=== PATIENT | female | born 1965 | race Caucasian/White ===

== ENCOUNTER → 2018-11-24 07:19 | Outpatient (CLI) | payer OTHER, SELFPAY ==
--- NOTE | 2018-11-24 12:02 | NEURO ---
NCS and/or EMG Patient Report Ordering Doctor: Claus Crews Jr. DATE OF SERVICE: 11/24/18 this is a right upper extremity ncv performed on this 53 yo female with a 7yr history of numbness in the right upper extremity. Right upper extremity sensory motor nerve conduction studies performed demonstrating prolongation of the median motor and sensory distal latency with preservation of amplitudes and conduction velocities. The ulnar motor and sensory and radial sensory responses are normal. The right median F wave latency is mildly prolonged compared to the ulnar F-wave latency. Impression: Abnormal nerve conduction study of the right upper extremity consistent with moderate carpal tunnel syndrome with the right wrist.
--- NOTE | 2018-11-24 12:05 | NEURO_ITS ---
NCS and/or EMG Patient Report Ordering Doctor: Claus Crews Jr. DATE OF SERVICE: 11/24/18 this is a right upper extremity ncv performed on this 53 yo female with a 7yr history of numbness in the right upper extremity. Right upper extremity sensory motor nerve conduction studies performed demonstrating prolongation of the median motor and sensory distal latency with preservation of amplitudes and conduction velocities. The ulnar motor and sensory and radial sensory responses are normal. The right median F wave laten cy is mildly prolonged compared to the ulnar F-wave latency. Impression: Abnormal nerve conduction study of the right upper extremity consistent with moderate carpal tunnel syndrome with the right wrist.
== END ==
PROVIDERS: Family Provider Family Medicine; PCP Family Medicine; Referring Provider Family Medicine; Visit Provider Family Medicine
DX: G56.01 Carpal tunnel syndrome, right upper limb (principal)
CPT/HCPCS: 95909

== ENCOUNTER → 2020-05-11 | Outpatient (CLI) | payer OTHER, SELFPAY ==
[2016-11-26 11:17] VITALS: BMI 27.8
[2020-05-11 09:31] LABS: Hemoglobin 14.7 g/dL (12.0-15.0); Mean Corp Hgb Conc 33.4 g/dL (32-36); Mean Corpuscular Hgb 32.8 pg (27.0-32.0); Mean Corpuscular Volume 98.2 fL (81-99); Mean Platelet Vol. 9.4 fl (6.2-12.0); Platelet Count 313 K/mm3 (150-450); RBC Distribution Width CV 11.7 % (11.6-14.6); RBC Distribution Width SD 42.5 fl (35.1-43.9); Red Blood Count 4.48 M/mm3 (4.2-5.4)
== END | disposition home or self-care (01) ==
LOC: LAB 08:52
PROVIDERS: PCP Family Medicine; Referring Provider Obstetrics & Gynecology; Visit Provider Obstetrics & Gynecology
DX: Z01.818 Encounter for other preprocedural examination (principal)
CPT/HCPCS: 36415; 85027

== ENCOUNTER 2020-05-18 07:14 | Day surgery (SDC) | payer OTHER, SELFPAY ==
[2016-11-26 11:17] VITALS: BMI 27.8
--- NOTE | 2020-05-09 09:58 | HP.PCM_ITS ---
History and Physical Date of Admission: 05/18/20 Gita Ferguson Physician Specialty: [employer] SPECIALIST H&P Signed Encounter Date: 05/09/2020 Expand AllCollkp All Hide copied text El for details Zhanna Rojo is a 54 year old female who presents for preoperative evaluation for abnormal uterine bleeding, thickened endometrium, endometrial polyp. Patient has history of heavy menses ultrasound was done which revealed endometrial lining approximately 2 cm. She had an endometrial biopsy which showed polypoid tissue. Patient would like to proceed with intervention at this time with a hysteroscopy, D&C, polypectomy using the Symphion device. Patient denies any chest pain, shortness of breath or dizziness. ? PAST MEDICAL HISTORY PAST MEDICAL HISTORY Diagnosis Date ? Cervical high risk human papillomavirus (HPV) DNA test positive ? ? Esophageal reflux ? ? Mittelschmerz ? ? Other and unspecified disc disorder of unspecified region ? ? Intervertebral disc disorders ? Other and unspecified ovarian cyst ? ? Papanicolaou smear of cervix with atypical squamous cells of undetermined significance (ASC-US) ? ? PAST SURGICAL HISTORY PAST SURGICAL HISTORY Procedure Laterality Date ? BX OF BREAST; INCISIONAL ? ? ? Bx of breast, Stereotactic, right ? DELIVERY ONLY ? ? ? x2 ? COLONOSCOP W/ OR W/O [facility] SPEC ? 02/02/16 ? normal - 10 year follow up ? COLPOSCOPY (VAGINOSCOPY) ? 2005 ? Colposcopy ? DEBRIDEMENT UP TO 10% ? 11/06/2009 ? RLQ ? LIGATE FALLOPIAN TUBE ? 11/15/04 ? NEG PRESS WOUND TX, < 50 CM ? 11/06/2009 ? PAST SURGICAL HISTORY OF ? ? ? diagnostic laparoscopy ? PAST SURGICAL HISTORY OF ? ? ? micro discectomy back ? REM LESION TRUNK,ARM, LEG <0.5 CM ? 10/29/06 ? Exc. right upper back nevus ? REMOVAL OF OVARY/TUBE(S) ? 08/01/2009 ? Right Sfjphxlr-[id number] ? REMOVAL OF TONSILS,<12 Y/O ? ? ? FAMILY HISTORY FAMILY HISTORY Problem Relation Age of Onset ? Diabetes Mother ? ? Heart Father ? ? Cancer Maternal Grandmother ? ? Leukemia ? Cancer Paternal Grandmother ? ? lung ? Heart Paternal Grandfather ? ? SOCIAL HISTORY Social History ? Tobacco Use ? Smoking status: Never Smoker ? Smokeless tobacco: Never Used Substance Use Topics ? Alcohol use: Yes ? ? Comment: Seldom ? Drug use: No ? CURRENT MEDICATIONS Current Outpatient Medications Medication Sig ? FERROUS SULFATE (SLOW FE ORAL) Take by mouth. ? MULTIVITAMIN TAB Take one(1) tablet daily. ? miSOPROStol (CYTOTEC) 200 mcg tablet Take two tablets PO night before procedure and two tablets morning of procedure ? miSOPROStol (CYTOTEC) 200 mcg tablet Take two tablets PO night before procedure and two tablets morning of procedure (Patient not taking: Reported on 05/09/2020 ) ? Evening [place] Oil 500 mg cap Take 1 capsule by mouth once daily. (Patient not taking: Reported on 05/09/2020 ) ? fluticasone (FLONASE) 50 mcg/actuation nasal spray Use 2 Sprays in each nostril once daily. Rinse mouth after use. ? triamcinolone acetonide (KENALOG) 0.1 % cream Apply 1 application to affected area three times daily. Apply sparingly to area for rash/itching. ? fluticasone (FLONASE) 50 mcg/actuation nasal spray Use 2 Sprays in each nostril once daily. Rinse mouth after use. ? gluc chan/chondro chan a/vit c/mn(GLUCOSAMINE CHONDROITIN MAXIMUM STRENGTH 500 MG-400 MG CAP) Take one(1) capsule qd to bid. ? No current facility-administered medications for this visit. ? Allergies As of Date: 05/09/2020 Allergen Noted Reaction CLINDAMYCIN 02/28/2017 Hives SULFA (SULFONAMIDE ANTIBIOTICS) 09/30/2005 Hives ? Fully Assessed 05/09/2020 ? ? REVIEW OF SYSTEMS Abdomen: no pain Bladder: no dysuria .. Expanded ROS: GENERAL: Negative for fever Allergies and current medication updated:Yes ? EXAM: BP 112/72 Wt 156 lb (70.8kg) LMP 04/10/2020 GENERAL: pleasant, female in no apparent distress HEENT: Normocephalic and atraumatic NECK: full range of motion DERMATOLOGY: Normal, without lesions, non-icteric and non-hirsute CARDIAC: Regular rate and rhythm CHEST: Clear to auscultation Normal inspiratory effort NEURO: alert and oriented x3,exam grossly non-focal ? ASSESSMENT AND PLAN: Encounter Diagnosis ? ? ICD-10-CM ? 1. Abnormal uterine bleeding (AUB) N93.9 ? 2. Endometrial polyp N84.0 ? 3. Thickened endometrium R93.89 ? ? 4. Pt has been counseled on risks/benefits and alternatives of surgery including but not limited to anesthesia, bleeding, infection, uterine perforation with subsequent injury to pelvic structures including bowel, bladder, ureters and vessels. Pt wishes to proceed with surgery at this time. 5. covid testing reviewed 6. Declines post op meds 7. cytotec ordered ? ? Gita Castro MD Procedure Criteria Procedure Type: Elective COVID Risk Discussion: The surgeon/proceduralist and patient have discussed in detail the risk of exposure to and/or potential harm posed by the COVID-19 virus with having a surgery/procedure at this time versus the risk of delaying the surgery/procedure. It is not possible to know either the risk of delaying the s urgery or procedure or chance of getting an infection with perfect accuracy, but a joint decision was made between the patient and the surgeon/proceduralist to proceed at this time with the scheduled surgery/procedure as indicated on the consent form.
[2020-05-18] VITALS (7 sets, daily range): BP systolic 93–124; BP diastolic 60–83; PULSE 62–74; RESP 14–18; TEMP 36.3–37.2; O2SAT 92–98; BMI 29.1
[2020-05-18 07:56] LABS: Internal QC Validated? YES +Cl - CLEAR BKGD; Pregnancy, Urine Negative Negative
[2020-05-18] MEDS: Lactated Ringers 1,000 ML 100 ML IV (08:17)
--- NOTE | 2020-05-18 08:37 | DCINST_ITS ---
Discharge Diet: No Restrictions Discharge Activity: Return to Normal Activity, May Shower, May Take a Tub Bath - in 2 weeks. May resume sexual activity in: 1 week Lifting Restrictions: none Call your doctor if you observe: Fever of 101 or Higher, Using more than one pad per hour Allergies/Adverse Reactions: Allergies clindamycin Allergy (Verified 05/18/20 07:44) Hives Sulfa (Sulfonamide Antibiotics) Allergy (Verified 05/18/20 07:44) Hives Medications to take at Discharge NK 05/09/20 Primary Care Physician: Claus Crews III, MD [Primary Care Provider] - Test Results: Test results from this visit will be discussed in further detail at your follow- up appointment, if applicable. Please Follow Up With: Gita Castro MD When: 1-2 weeks- call [phone]
--- NOTE | 2020-05-18 08:40 | EMB_PTH ---
PATIENT: JOEY MUNOZ LOC: [facility]#:[id number] AGE/SX: 54/F ROOM: RE05/18/[address]: Dr. Gita Castro, MDDOB: 1965 BED: DIS: 05/18/2020 SPEC #: [id number] RECD: 05/18/20 10:59 STATUS: GREGORIO IQBALBrandy #: [id number] EFREN: 05/18/20 08:[address]: Gita Castro DEPT: SURGICAL PATHOLOGY RECD BY: Jeffrey Barrios ENTERED: 05/18/20 11:26 SP TYPE: ENDOM BX/C ADRIAN DR: Dr. Claus Crews III, MD Tissues: Endometrium, NOS Procedures: Surgery Specimen Level IV HEADER OPERATION: Hysteroscopy, D & C Symphion PRE-OP DIAGNOSIS: Abnormal uterine bleeding; endometrial polyp TISSUE SUBMITTED: Endometrial curettings, endometrial polyp MICROSCOPIC DIAGNOSIS Endometrial curettings, endometrial polyp: Fragments of inactive endometrium. Fragments of myometrium with changes suggestive of leiomyoma. Fragments of benign ectocervical epithelium. See comment. LESLEY:nicolas 05/19/20 COMMENT Clinical correlation and appropriate follow up are necessary. MICROSCOPIC DESCRIPTION Slides are reviewed. GROSS DESCRIPTION Received in fixative is one container labeled with the patient's name and designated endometrial curettings and endometrial polyp. The specimen consists of multiple irregular fragments of deutsch soft tissue that in aggregate measure 3 x 2.5 x 0.3 cm. The specimen is totally submitted in one cassette. / LESLEY:nicolas 05/18/20 TC:5 CPT: 73519
--- NOTE | 2020-05-18 09:18 | PCM.OPRPT ---
Report of Operation Date of Procedure: 05/18/20 - start time Pre-Operative Diagnosis: AUB, endometrial polyp, thickened endometrium Post-Operative Diagnosis: same Surgery/Procedure Performed:: hysteroscopy, D&C, polypectomy Description of Surgical Findings:: Uterus sounded to 7cm, Both tubal ostia visualized. Type of Anesthesia:: MAC Special Medications: none Specimen's removed: endometrial curettings and endometrial polyp Drains: none Estimated Blood Loss (mL): <5cc Fluids Replaced: 500cc Description of Procedure: informed consent was obtained the patient was taken the operating room she was placed in supine position. She was given anesthesia. She was then placed in the [facility] where she was prepped and draped in the normal sterile fashion. At this time the weighted speculum was placed in the posterior fornix of vagina. Single-tooth tenaculum was used to gently grasp the anterior lip the cervix. At this time the uterine cavity was sounded to approximately 7 cm. Gentle dilatation was performed once adequate dilatation of the cervix was achieved the hysteroscope using normal saline as a distention medium was placed. appeared that she may have a adhesion or fibroid on anterior aspect- once i was able to get around the tissue i was able to visualize the tubal ostia and small endometrial polyp at right tubal ostia and anteriorly possible small fibroid. tissue was resected with symphion. gentle sharp curettage was performed as well- minimal tissue noted. hysteroscope was reinserted and cavity noted to be intact. anteriorly there was what appeared to be a false tract from dilation- no perforation noted- cavity intact. This time hysteroscopy was complete.. Tissue will be sent to pathology for evaluation. Tenaculum removed. Good hemostasis. Instrument, lap count correct x 2. fluid deficit approximately 1700cc. Vaginal Sweep was negative. Grafts/Implants Used: none - Complications none - Admit VTE Documentation VTE Present on Admission: Yes VTE Mechan Device Prophylaxis: SCD's VTE Pharm Prophylaxis ordered?: No
== END 2020-05-18 11:34 | disposition home or self-care (01) ==
LOC: SDC 07:14 → AC 07:16
PROVIDERS: Anesthesiology; PCP Family Medicine; Referring Provider Obstetrics & Gynecology; Visit Provider Obstetrics & Gynecology
PROC: 0UB98ZZ Excision of Uterus, Via Natural or Artificial Opening Endoscopic (ICD-10-PCS; CPT 58558; principal; 2020-05-18 08:25)
DX: N84.0 Polyp of corpus uteri (principal); R93.89 Abnormal findings on diagnostic imaging of other specified body structures; K21.9 Gastro-esophageal reflux disease without esophagitis; D64.9 Anemia, unspecified; Z20.828 Contact with and (suspected) exposure to other viral communicable diseases
CPT/HCPCS: 00952; 58558; 81025; 87635; 88305; C9803; J7120; U0003

== ENCOUNTER → 2020-11-29 08:05 | Outpatient (CLI) | payer OTHER, SELFPAY ==
[2020-05-18 07:46] VITALS: BMI 29.1
--- NOTE | 2020-11-29 13:13 | NEURO ---
NCS and/or EMG Patient Report Ordering Doctor: Claus Crews Jr. DATE OF SERVICE: 11/29/20 Zhanna presents for electrodiagnostic testing of the left upper limb. She reports numbness and tingling in the left hand. Electrodiagnostic findings: Left median motor nerve demonstrates prolonged latency with reduced amplitude and reduced conduction velocity. Normal left ulnar motor response normal median and ulnar F-wave. Prolonged median sensory latency at the wrist. On needle EMG, all muscles tested in the left upper limb showed no evidence of denervation with normal motor unit action potentials Electrodiagnostic impression: This is an abnormal study in the left upper limb. 1. Electrodiagnostic findings demonstrate left-sided median mononeuropathy this is consistent with a moderate to advanced left carpal tunnel syndrome
== END ==
PROVIDERS: PCP Family Medicine; Referring Provider Family Medicine; Visit Provider Family Medicine
DX: G56.02 Carpal tunnel syndrome, left upper limb (principal)
CPT/HCPCS: 95886; 95909

== ENCOUNTER 2022-06-13 20:58 | Emergency (ER) | payer OTHER, SELFPAY ==
[2022-06-13 20:59] VITALS: BP 136/93; PULSE 88; RESP 16; TEMP 36.4; O2SAT 98; BMI 30.2
--- NOTE | 2022-06-13 22:05 | EX.ED.DYSGE1 ---
HPI History of Present Illness Chief Complaint: Nausea/Vomiting Narrative Narrative: 56-year-old female here for nausea vomiting and syncope. Patient states she has had intractable nausea vomiting all day. Denies hematemesis. Denies abdominal pain. States symptoms are constant, severe without alleviating factors. Notes that her vomiting was associated with brief loss of consciousness with head trauma. Denies any focal weakness or numbness. The patient denies abdominal pain. Old chart reviewed: No recent ED visits The patient is not on anticoagulation PFSH PFSH Medical History no medical history Home Medications cetirizine 5 mg tablet 10 mg PO DAILY 06/13/22 [History Last Taken Unknown] metoclopramide HCl 5 mg tablet (Reglan) 5 mg PO Q8H PRN PRN nausea and vomiting 7 days #21 tabs 06/13/22 [Rx Last Taken Unknown] pantoprazole 20 mg tablet,delayed release 20 mg PO DAILY 06/13/22 [History Last Taken Unknown] Allergy/AdvReac Type Severity Reaction Status Date / Time clindamycin Allergy Hives Verified 06/13/22 20:59 Sulfa (Sulfonamide Allergy Hives Verified 06/13/22 20:59 Antibiotics) Social History Smoking Status: Never smoker ROS ROS ED ROS Narrative Constitutional: Denies fever HEENT: Denies sore throat Neck: Denies neck pain Cardiovascular: Endorses syncope Respiratory: Denies shortness of breath GI: Endorses nausea vomiting denies abdominal pain : Denies changes in urinary habits Musculoskeletal: Denies muscle or joint pain Neurologic: Denies numbness weakness or loss of sensation Skin denies rash EXAM Physical Exam Narrative Exam Narrative: Nursing triage notes reviewed, Vital signs reviewed Primary Survey Airway: Intact Breathing: Bilateral breath sounds Circulation: Palpable bilateral femorals, Palpable bilateral radial, Palpable bilateral DP and Palpable bilateral PT Disability / Spine precautions GCS Score: Eye Openin Verbal Response: 5 Motor Response: 6 Secondary Survey Constitutional: Please see MDM Head: Atraumatic, Midface stable, NO jaw malocclusion, No Cephalohematoma, and No Lacerations noted Eye: Pupils equal round and reactive to light, Extraocular muscles intact and No periorbital ecchymosis or stepoff, no evidence of entrapment ENT: Oropharynx clear, no lacerations, no hemotympanum, no raccoon eyes or kerr sign Cervical spine / Neck: No cervical spine bony tenderness, crepitance, or stepoff deformity Trachea midline Lungs: Clear to auscultation, No asymmetric rise and No crepitus, no flail chest Cardiac: Regular rate and rhythm and No murmurs Abdomen: Soft, Nontender and No rebound Pelvis: Pelvis stable to compression : No evidence of genital injury Back: No midline bony tenderness to thoracic/lumbar/sacral spines Neuro: Alert and oriented x3, neuro exam at baseline, cranial nerves II through XII are intact. No pain with extraocular muscle movement. There is negative test of skew. Normal speech. 5 of 5 strength in upper and lower extremities in flexion extension. Intact sensation to light touch in upper and lower extremity dermatomes. No truncal or extremity ataxia. No dysdiadochokinesia. Normal gait. 2+ reflexes. No meningeal signs. Negative Babinski. NIH of 0 Extremities: NO gross Deformities Psych: Normal affect Nursing triage notes reviewed, Vital signs reviewed Const Vital Signs: 06/13/22 20:59 06/13/22 22:56 06/14/22 00:05 Temperature 97.5 F L Temperature Source Temporal Pulse Rate 88 86 82 Respiratory Rate 16 14 14 Blood Pressure 136/93 H 134/85 H 124/67 H Blood Pressure Mean 107 101 86 Pulse Ox 98 100 100 Oxygen Delivery Method Room Air Room Air Room Air MDM MDM MDM Narrative Medical decision making narrative: 56-year-old female here with nausea vomiting and syncope. She was hemodynamically stable, afebrile, nontoxic-appearing. Exam without focal neurologic deficits. There is minor head trauma noted to the left zygomatic arch. Concern for intracranial normalities given fall also concerned about electrolyte normalities, dehydration, and infectious etiologies. I obtained a broad lab and imaging work-up to further elucidate the etiology the patient's complaints. EKG without evidence of arrhythmia, myocardial ischemia. CBC without evidence of significant anemia. Patient did have a mild hypokalemia but otherwise no significant electrolyte abnormalities, anion gap or acute kidney injury. Patient's troponin was negative. No evidence of pancreatitis or hepatobiliary pathology. Patient's etiology is likely vasovagal syncope secondary to nausea vomiting does not otherwise specified. She did have benign abdomen as such I do not think the patient had an acute surgical process driving her symptoms. She remained hemodynamically stable to tolerate p.o. and is appropriate for discharge home. Lab Data Attestation: I reviewed the patient's lab results. Lab results narrative: CBC without leukocytosis, severe anemia, no thrombocytopenia. BMP with mild hypokalemia otherwise no significant electrolyte abnormalities, anion gap or signs of dehydration or acute kidney injury LFTs show no evidence of hepatobiliary pathology. Lipase is wnl indicating no pancreatic inflammation. Troponin is negative, no evidence of myocardial ischemia Labs: Laboratory Results - last 24 hr 06/13/22 06/13/22 22:45 22:45 WBC 8.7 RBC 4.95 Hgb 15.7 H Hct 47.0 MCV 94.9 MCH 31.7 MCHC 33.4 RDW Std Deviation 42.4 RDW Coeff of Sandra 12.2 Plt Count 277 MPV 9.6 Immature Gran % (Auto) 1.700 H Neut % (Auto) 79.6 H Lymph % (Auto) 14.[address] % (Auto) 3.7 Eos % (Auto) 0.1 Baso % (Auto) 0.7 Absolute Neuts (auto) 6.9 Absolute Lymphs (auto) 1.24 Nucleated RBC % 0.3 Sodium 138 Potassium 3.3 L Chloride 104 Carbon Dioxide 28.0 Anion Gap 6 BUN 13 Creatinine 0.86 Estim Creat Clear Calc 54.46 Est GFR (MDRD) Af Amer 87 Est GFR (MDRD) Non-Af 72 BUN/Creatinine Ratio 15.1 Glucose 125 H Calcium 9.4 Total Bilirubin 0.60 AST 20 ALT 40 Alkaline Phosphatase 71 Troponin I High Sens 8 Total Protein 8.3 H Albumin 4.2 Globulin 4.1 Albumin/Globulin Ratio 1.0 Lipase 134 Radiography Chest X-Ray - ED: Read by ED Physician Diagnostic Testing: Clinical Impression(s) from Imaging Studies Brain CT 06/13/22 22:26 IMPRESSION: Negative head/brain CT without intravenous contrast. Electronically Signed: Too Alvarez MD at 23:33 EST , Chest X-Ray 06/13/22 22:26 IMPRESSION: No radiographic evidence of acute cardiopulmonary disease. Electronically Signed: Too Alvarez MD at 23:46 EST , I have personally reviewed the patient's chest x-ray. Chest x-ray is unremarkable for pulmonary edema, pneumothorax, pneumonia or focal cardiopulmonary abnormality. EKG Initial EKG: Attestation: I personally reviewed and interpreted this EKG as follows: Comments: EKG with normal sinus rhythm, left axis deviation, normal intervals, no STEMI, no WPW, no ARVD, no Brugada syndrome Discharge Plan Triage Chief Complaint: Nausea/Vomiting ED Provider: Brock Burch Dx/Rx/DC Orders Clinical Impression: Syncope, vasovagal, Nausea & vomiting, Acute hypokalemia Instructions: ED Vomiting (Adult) Prescriptions: New metoclopramide HCl [Reglan] 5 mg tablet 5 mg PO Q8H PRN PRN (Reason: nausea and vomiting) 7 Days Qty: 21 0RF No Action cetirizine [Zyrtec] 5 mg Tablet 10 mg PO DAILY pantoprazole 20 mg tablet,delayed release (DR/EC) 20 mg PO DAILY Stand Alone Forms: ED Work / School Excuse Primary Care Provider: Sulaiman Jensen Referrals: Sulaiman Jensen MD [Primary Care Provider] - Activity Restrictions/Additional Instructions: Please return if your symptoms change or worsen. Please take Reglan as needed for nausea and vomiting. Please return if develop chest pain, lose consciousness, develop shortness of breath, develop a racing heart. Disposition Disposition: Home, Self Care Discharge Date/Time: 06/14/22 00:33
--- NOTE | 2022-06-13 22:26 | CT_ITS ---
EXAM: CT HEAD WITHOUT INTRAVENOUS CONTRAST CLINICAL INDICATION: head trauma TECHNIQUE: Multiple axial images were obtained of the head without intravenous contrast. CTDIvol = ( 44.99 ) mGy, DLP = ( 796.11 ) mGycm This CT exam was performed using one or more of the following dose reduction techniques: automated exposure control, adjustment of the mA and/or kV according to patient size, and/or use of iterative reconstruction technique. This report was created using [employer] report generation technology. COMPARISON: None. FINDINGS: BRAIN AND EXTRA-AXIAL SPACES: Unremarkable. No intra- or extra-axial hemorrhage. No evidence of acute infarct. No intracranial mass or mass effect. There is preservation of the wood/white matter interface. Posterior fossa structures are unremarkable. Ventricles are appropriate for age. No hydrocephalus. Basal cisterns are patent. BONES/JOINTS: Unremarkable. No discrete lytic or blastic abnormalities. SINUSES: Unremarkable as visualized. Clear. MASTOID AIR CELLS: Unremarkable. Clear. ORBITS: Visualized globes, extraocular muscles, optic nerves and retrobulbar fat appear unremarkable. CT/Brain/Head without Contrast IMPRESSION: Negative head/brain CT without intravenous contrast. Electronically Signed: Too Alvarez MD at 23:33 EST ,
--- NOTE | 2022-06-13 22:26 | RAD_ITS ---
EXAM: XR CHEST, 2 VIEWS CLINICAL INDICATION: syncope TECHNIQUE: Frontal and lateral views of the chest. This report was created using [employer] report generation technology. COMPARISON: None. FINDINGS: LUNGS AND PLEURAL SPACES: Unremarkable. No consolidation or edema. No pneumothorax. No effusion. HEART: Unremarkable. Cardiac silhouette not enlarged. MEDIASTINUM: Central airways and mediastinal contour are unremarkable. BONES/JOINTS: Unremarkable. SOFT TISSUES: Unremarkable. RAD/Chest PA and Lateral IMPRESSION: No radiographic evidence of acute cardiopulmonary disease. Electronically Signed: Too Alvarez MD at 23:46 EST ,
[2022-06-13] MEDS: Metoclopramide 10 MG/2 ML Vial IV (22:50)
[2022-06-13] MEDS: 0.9% Normal Saline 1,000 ML 1000 ML IV (22:50)
[2022-06-13 22:56] VITALS: BP 134/85; PULSE 86; RESP 14; O2SAT 100
[2022-06-13 23:21] LABS: Absolute Lymphocyte Count 1.24 X10^3/uL (0.83-4.51); Absolute Neutrophil Count 6.9 X10^3/uL (2.0-7.7); Basophil# 0.06 X10^3/uL; Basophil% 0.7 % (0-1); Eosinophil# 0.01 X10^3/uL; Eosinophils% 0.1 % (0-5); Hemoglobin 15.7 g/dL (12.0-15.0); Lymphocyte # 1.24 X10^3/ul (0.83-4.51); Lymphocyte % 14.2 % (19-41); Mean Corp Hgb Conc 33.4 g/dL (32-36); Mean Corpuscular Hgb 31.7 pg (27.0-32.0); Mean Corpuscular Volume 94.9 fL (81-99); Mean Platelet Vol. 9.6 fl (6.2-12.0); Monocyte# 0.32 X10^3/uL; Monocyte% 3.7 % (0-10); NRBC Flagged by Analyzer 0.3 % (0-5); Neutrophil # 6.93 X10^3/uL (2.7-7.7); Neutrophil % 79.6 % (47-70); Platelet Count 277 K/mm3 (150-450); RBC Distribution Width CV 12.2 % (11.6-14.6); RBC Distribution Width SD 42.4 fl (35.1-43.9); Red Blood Count 4.95 M/mm3 (4.2-5.4); White Blood Count 8.7 K/mm3 (4.4-11.0)
[2022-06-13 23:23] LABS: AST(SGOT) 20 U/L (15-37); Alanine Aminotransfer ALT/SGPT 40 U/L (13-56); Albumin, Serum 4.2 g/dL (3.2-5.0); Alkaline Phosphatase 71 U/L (45-117); Anion Gap 6 (5-15); BUN 13 mg/dL (7-18); BUN/Creat Ratio 15.1 RATIO (10-20); Calcium,Total 9.4 mg/dL (8.5-10.1); Chloride 104 mmol/L (98-107); Creatinine, Serum 0.86 mg/dL (0.55-1.02); EST Glomerular Filtration Rate 72 mL/min (>60); Est Glom Filt Rate - Afr Amer 87 mL/min (>60); Estimated Creatinine Clearance 54.46 ml/min; Globulin 4.1 g/dL (2.2-4.2); Glucose 125 mg/dL (74-106); Lipase 134 U/L (73-393); Potassium 3.3 mmol/L (3.5-5.1); Protein, Total 8.3 g/dL (6.4-8.2); Sodium Level 138 mmol/L (136-145); Troponin-I HS 8 pg/mL (3.0-54.0)
[2022-06-13] MEDS: Potassium Chloride Oral Tablet 20 MEQ 40 MEQ PO (23:46)
[2022-06-14 00:05] VITALS: BP 124/67; PULSE 82; RESP 14; O2SAT 100
== END 2022-06-14 00:33 | disposition home or self-care (01) ==
PROVIDERS: Emergency Provider Emergency Medicine; PCP Family Medicine; Visit Provider Emergency Medicine
DX: S06.9X9A Unspecified intracranial injury with loss of consciousness of unspecified duration, initial encounter (principal); R11.2 Nausea with vomiting, unspecified; R55 Syncope and collapse; X58.XXXA Exposure to other specified factors, initial encounter
CPT/HCPCS: 70450; 71046; 80053; 83690; 84484; 85025; 87428; 93005; 96361; 96374; 99283; J7030; A4216

== ENCOUNTER → 2022-12-05 | Outpatient (CLI) | payer OTHER, SELFPAY ==
--- NOTE | 2022-12-05 08:44 | RAD_ITS ---
EXAMINATION: Fluoroscopic double contrast esophagram. INDICATION: DYSPHAGIA/GERD EXAMINATION/TECHNIQUE: Thick and thin barium oral contrast , gas bubbles, and barium pill were administered to the patient. Total Fluoroscopic Time: 10 seconds AND number of Fluoroscopic Images: 35 spots (including spot images from cine clips) Radiation dosage index: 39.98 mGy COMPARISON: None. FINDINGS: There is normal passage of thick and thin barium contrast through the esophagus to the stomach. No definitive masses were identified. No hiatal hernia. Mucosal pattern is unremarkable although assessment is somewhat limited by underdistention. No hiatal hernia or reflux elicited at the gastroesophageal junction. The barium pill remained stuck within the proximal esophagus just above the clavicles even after multiple attempts to flush with water. A small amount of oral contrast was then given which passed around the pill into the esophagus and stomach normally. No diverticulum was identified. RAD/Esophagus Dual Contrast IMPRESSION: Difficulty in passing the barium pill which remained stuck within the proximal esophagus just above the clavicles even after attempts to flush with water. Given that there is no definitive associated diverticulum identified, findings may relate to esophageal stenosis or stricture proximally. Normal passage of fluid through the esophagus. Further assessment with endoscopy and/or CT neck is recommended. Electronically Signed: Randolph Briscoe DO at 10:33 EDT ,
== END | disposition home or self-care (01) ==
PROVIDERS: PCP Family Medicine; Referring Provider Otolaryngology; Visit Provider Otolaryngology
DX: K21.9 Gastro-esophageal reflux disease without esophagitis (principal); R49.0 Dysphonia
CPT/HCPCS: 74221

== ENCOUNTER 2023-04-23 13:00 | Outpatient (RCR) | payer OTHER, SELFPAY | END 2023-05-13 23:59 | LOC: NS 13:00 | PROVIDERS: PCP Family Medicine; Referring Provider Nurse Practitioner Family; Visit Provider Nurse Practitioner Family | DX: Z71.3 Dietary counseling and surveillance (principal); E66.9 Obesity, unspecified; K21.00 Gastro-esophageal reflux disease with esophagitis, without bleeding; E78.00 Pure hypercholesterolemia, unspecified; R03.0 Elevated blood-pressure reading, without diagnosis of hypertension; Z86.39 Personal history of other endocrine, nutritional and metabolic disease; Z68.30 Body mass index [BMI] 30.0-30.9, adult | CPT/HCPCS: 97802 ==

== ENCOUNTER 2023-05-14 14:01 | Outpatient (RCR) | payer OTHER, SELFPAY | END 2023-06-12 23:59 | LOC: NS 14:01 | PROVIDERS: PCP Family Medicine; Referring Provider Nurse Practitioner Family; Visit Provider Nurse Practitioner Family | DX: Z71.3 Dietary counseling and surveillance (principal); K21.00 Gastro-esophageal reflux disease with esophagitis, without bleeding; E78.00 Pure hypercholesterolemia, unspecified; R03.0 Elevated blood-pressure reading, without diagnosis of hypertension; E66.9 Obesity, unspecified; Z68.30 Body mass index [BMI] 30.0-30.9, adult; Z86.39 Personal history of other endocrine, nutritional and metabolic disease | CPT/HCPCS: 97803 ==

== ENCOUNTER 2023-07-02 13:41 | Outpatient (RCR) | payer OTHER, SELFPAY | END 2023-07-13 23:59 | LOC: NS 13:41 | PROVIDERS: PCP Family Medicine; Referring Provider Nurse Practitioner Family; Visit Provider Nurse Practitioner Family | DX: Z71.3 Dietary counseling and surveillance (principal); K21.00 Gastro-esophageal reflux disease with esophagitis, without bleeding; E78.00 Pure hypercholesterolemia, unspecified; R03.0 Elevated blood-pressure reading, without diagnosis of hypertension; E66.9 Obesity, unspecified; Z68.30 Body mass index [BMI] 30.0-30.9, adult; Z86.39 Personal history of other endocrine, nutritional and metabolic disease | CPT/HCPCS: 97803 ==

== ENCOUNTER 2023-09-16 13:06 | Outpatient (RCR) | payer OTHER, SELFPAY | END 2023-10-12 23:59 | LOC: NS 13:06 | PROVIDERS: PCP Family Medicine; Referring Provider Nurse Practitioner Family; Visit Provider Nurse Practitioner Family | DX: E66.9 Obesity, unspecified (principal); Z68.30 Body mass index [BMI] 30.0-30.9, adult; R03.0 Elevated blood-pressure reading, without diagnosis of hypertension; E78.00 Pure hypercholesterolemia, unspecified; K21.00 Gastro-esophageal reflux disease with esophagitis, without bleeding; Z86.39 Personal history of other endocrine, nutritional and metabolic disease | CPT/HCPCS: 97803 ==

== ENCOUNTER 2024-01-01 07:18 | Day surgery (SDC) | payer OTHER, SELFPAY ==
--- NOTE | 2023-12-25 16:04 | HP.PCM.OB_ITS ---
History and Physical Date of Admission: 01/01/24 Expand All Collapse All Pre-Op History and Physical HPI: The patient is a 58 year old female presenting discussing regarding PMB and Thickened EM. Pt report had another episode of heavier bleeding like a regular menses. Ultrasound shows 1cm EM- fibroids and likely adenomyosis. Previous hysteroscopy- D&C with removal of polyp and fibroid in 2019. for pre-operative visit. She is scheduled for Hysteroscopy D&C with symphion, for PMB and endometrial thickening on 01/01/24. Procedure discussed along with risks, benefits and complications. Other alternatives discussed for management. Consent form signed? Yes. PAST MEDICAL HISTORY PAST MEDICAL HISTORY Diagnosis Date ? Cervical high risk human papillomavirus (HPV) DNA test positive ? GERD (gastroesophageal reflux disease) ? Mitt[place]chmerz ? Other and unspecified disc disorder of unspecified region Intervertebral disc disorders ? Other and unspecified ovarian cyst ? Papanicolaou smear of cervix with atypical squamous cells of undetermined significance (ASC-US) PAST SURGICAL HISTORY PAST SURGICAL HISTORY Procedure Laterality Date ? BIOPSY BREAST OPEN INCISIONAL Bx of breast, Stereotactic, right ? DELIVERY ONLY x2 ? COLONOSCOPY FLX DX W/COLLJ SPEC WHEN PFRMD 02/02/2016 normal - 10 year follow up ? COLPOSCOPY CERVIX UPPER/ADJACENT VAGINA 2006 Colposcopy ? DBRDMT EXTENSV ECZEMA/INFECT SKN UP 10% BDY SURF 11/06/2009 RLQ ? EGD W/O [facility] SPEC VARICIES INJ Bilateral 03/03/2023 ? HYSTEROSCOPY 05/18/2020 ? HYSTEROSCOPY BX W/WO D&C 06/02- benign- Leiomyoma. [facility] DR. Ferguson ? LAPAROSCOPIC POLYPECTOMY 05/18/2020 ? LIG/TRNSXJ FLP TUBE ABDL/VAG APPR UNI/BI 11/15/2004 ? NEGATIVE PRESSURE WOUND THERAPY DME </= 50 SQ CM 11/06/2009 ? PAST SURGICAL HISTORY OF diagnostic laparoscopy ? PAST SURGICAL HISTORY OF micro discectomy back ? REM LESION TRUNK,ARM, LEG <0.5 CM 10/29/2006 Exc. right upper back nevus ? REVISE MEDIAN N/CARPAL TUNNEL SURG Right 04/2019 ? SALPINGO-OOPHORECTOMY COMPL/PRTL UNI/BI SPX 08/01/2009 Right Kqyrgsgr-ldqytgnbkrbf-mjnkmhqvitqs ? TONSILLECTOMY PRIMARY/SECONDARY <AGE 11 CURRENT MEDICATIONS Current Outpatient Medications Medication Sig Dispense Refill ? Phentermine HCl 15 mg capsule Take 1 capsule by mouth daily before breakfast for 90 days. 90 capsule 0 ? topiramate (TOPAMAX) 25 mg tablet Take 1 tablet by mouth two times a day. 180 tablet 1 ? Dexlansoprazole 60 mg CpDM Take 1 capsule by mouth every afternoon. ? famotidine (PEPCID) 40 mg tablet Take 40 mg by mouth daily at bedtime. ? cetirizine (ZYRTEC) 10 mg tablet Take 1 tablet by mouth once daily. ? cholecalciferol, vitamin D3, (VITAMIN D3 ORAL) Take 2,000 Units by mouth once daily. ? FERROUS SULFATE (SLOW FE ORAL) Take by mouth. ? MULTIVITAMIN TAB Take one(1) tablet daily. 0 No current facility-administered medications for this visit. ALLERGIES: Clindamycin and Sulfa (Sulfonamide Antibiotics) PERSONAL HISTORY: SOCIAL HISTORY Social History Tobacco Use ? Smoking status: Never ? Smokeless tobacco: Never Vaping Use ? Vaping Use: Never used Substance Use Topics ? Alcohol use: Yes Alcohol/week: 1.0 standard drink of alcohol Types: 1 Glasses of Wine (5oz) per week Comment: Seldom ? Drug use: No FAMILY HISTORY: FAMILY HISTORY FAMILY HISTORY Problem Relation Age of Onset ? Diabetes Mother at age 79 ? Heart Failure Mother ? Thyroid Mother Hypothyroid ? Obesity Mother ? Heart Father Heart arrythmia ? Thyroid Father Hypothyroid ? Diabetes Sister ? Obesity Sister ? Hyperlipidemia Sister ? Hypertension Sister ? Obesity Sister ? No Known Problems Sister ? Obesity Sister ? Cancer Maternal Grandmother Leukemia ? Obesity Maternal Grandmother ? Obesity Maternal Grandfather ? Lung Cancer Paternal Grandmother ? Obesity Paternal Grandmother ? Heart Attack Paternal Grandfather REVIEW OF SYMPTOMS: negative except as noted above PHYSICAL EXAMINATION: VITALS: Blood pressure 102/66, pulse 88, weight 66.7 kg (147 lb), last menstrual period 01/25/2022, SpO2 98%. GENERAL: The patient is well nourished, well hydrated in no acute distress. , The patient is oriented to time, place, and person. NECK: full range of motion LUNGS: Clear to auscultation bilaterally. no wheezes, rhonchi or rales HEART: Regular rate and rhythm, Normal heart sounds, and No murmurs or gallops IMPRESSION: 58yo with PMB, thickened EM, fibroid uterus. PLAN: Hysteroscopy, D&C with symphion Pt has been counseled on risks/benefits and alternatives of surgery including but not limited to anesthesia, bleeding, infection, uterine perforation with subsequent injury to pelvic structures including bowel, bladder, ureters and vessels. Pt wishes to proceed with surgery at this time. Pre and post op instructions reviewed I have reviewed and updated past medical and surgical history, medications and allergies Gita Ferguson MD Office Visit on 12/25/2023 Note shared with patient
[2024-01-01] VITALS (10 sets, daily range): BP systolic 96–112; BP diastolic 63–76; PULSE 60–79; RESP 16–17; TEMP 36.4–37.2; O2SAT 97–99; BMI 27.6
--- NOTE | 2024-01-01 07:29 | PCM.PRE.AN2 ---
ASA Classification* ASA Classification ASA Classification: 2 Assessment & Plan Anesthesia* Anesthesia Assessment Anesthesia Assessment: Discussed sedation and/or anesthesia options, risks, benefits, and alternatives with patient/parents/legal guardian/POA. Questions invited. The patient/parents/legal guardian/POA seems to understand and agrees to proceed with anesthesia plan. Reviewed the physical assessment, medical history, allergy history and patient home medications list prior to surgery/procedure/anesthetic and documented any changes. Performed airway and anesthesia risk assessments. 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 When Was Last Pacemaker Check QUESTION #4 FULL TEXT: You/Your Family Experience fever (hyperthermia) with Anesthesia Last Oral Intake Last Oral intake: Last Oral Intake NPO since Meds taken in AM with sips of water? Meds patient instructed to take am of surgery PONV PONV - third steel pourer: PONV - third steel pourer Female Yes 12/26/23 09:09 HX of Motion Sickness Yes 12/26/23 09:09 HX of N/V After Surgery No 12/26/23 09:09 Non-Smoker Yes 12/26/23 09:09 Duration of Surgery greater No 12/26/23 09:09 than 60 minutes Number of Risk Factors 3 12/26/23 09:09 PONV Score Moderate Risk 12/26/23 09:09 Height & Weight Height & Weight: Anesthesia: Height & Weight Height 5 ft 1 in 12/31/23 07:49 Weight: 66.678 kg 12/31/23 07:49 Respiratory Assessment Respiratory Assessment - third steel pourer: Respiratory Tract Infection Hx - third steel pourer Hx Respiratory Tract Infection No: HEAD COLD/NO FEVER 12/26/23 09:09 STOP Sleep Apnea STOP Sleep Apnea - third steel pourer: STOP Sleep Apnea - third steel pourer Hx Hypertension No 12/26/23 09:09 Hx Sleep Apnea No 12/26/23 09:09 CPAP BIPAP Do you snore loudly (louder No 12/26/23 09:09 than talking or can be heard Do you often feel tired/ No 12/26/23 09:09 fatigued/ sleepy during daytime? Has anyone observed you stop No 12/26/23 09:09 breathing during sleep? STOP Results Negative 12/26/23 09:09 QUESTION #5 FULL TEXT : Do you snore loudly (louder than talking or can be heard through closed doors)? 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 Specify any problems Hx of Preganancy in last 3 No 12/26/23 09:09 Months Nurse Filling Out Transfusion DSCHRIBER 12/26/23 09:09 & Questions: Date: 12/26/23 12/26/23 09:09 Time: 09:10 12/26/23 09:09 Patient unable to answer at this time (ie. confused, unrespo /Reproduction History /Reproductive History - third steel pourer: /Reproductive Hx- third steel pourer Hx Now No 12/26/23 09:09 Gestational Age (in weeks): EDC: Hx Hx Para Hx Section SAB No 12/26/23 09:09 Anesthesia Focused Assessment* Airway Assessment Mouth opens: >3 cm Mallampati Score: II Focused Labs Anesthesia Preop lab: CBC WBC 8.7 K/mm3 (4.4-11.0) 06/13/22 22:45 RBC 4.95 M/mm3 (4.2-5.4) 06/13/22 22:45 Hgb 15.7 g/dL (12.0-15.0) H 06/13/22 22:45 Hct 47.0 % (37-47) 06/13/22 22:45 Plt Count 277 K/mm3 (150-450) 06/13/22 22:45 CHEMISTRY Potassium 3.3 mmol/L (3.5-5.1) L 06/13/22 22:45 Sodium 138 mmol/L (136-145) 06/13/22 22:45 BUN 13 mg/dL (7-18) 06/13/22 22:45 Creatinine 0.86 mg/dL (0.55-1.02) 06/13/22 22:45 Glucose 125 mg/dL (74-106) H 06/13/22 22:45 COAG Urine Test Negative Negative 05/18/20 07:30 Review of Systems (Anesthesia) ROS Narrative System reviewed and no additional complaints, except as documented. [facility] Medical History Wears contact lenses Post-menopausal Low iron Blackout Migraine headache Difficulty swallowing Gastric reflux History of edema Non-smoker Home Medications ?Medication ?Instructions ?Recorded ?Last Taken ?Type cetirizine 5 mg tablet 10 mg PO QHS 06/13/22 Unknown History cholecalciferol (vitamin D3) 125 125 mcg PO DAILY 12/26/23 Unknown History mcg (5,000 unit) tablet (Vitamin D3) dexlansoprazole 60 mg 60 mg PO DAILY 12/26/23 Unknown History capsule,biphase delayed release famotidine 40 mg tablet 40 mg PO QHS 12/26/23 Unknown History flaxseed oil 1,000 mg capsule 1,000 mg PO DAILY 12/26/23 Unknown History jjhsjbsw-fao-ntfav 80 mcg-lutein 1 tab PO DAILY 12/26/23 Unknown History 166.7 mcg-herbal 66.7 mg chew tablet (Alive Premium Women's 50 Plus) phentermine 15 mg capsule 15 mg PO DAILY 12/26/23 Unknown History topiramate 25 mg tablet 25 mg PO BID 12/26/23 Unknown History Allergy/AdvReac Type Severity Reaction Status Date / Time clindamycin Allergy Hives Verified 12/26/23 09:03 Sulfa (Sulfonamide Allergy Hives Verified 12/26/23 09:03 Antibiotics) Surgical History Hx of tonsillectomy Hx of unilateral oophorectomy Hx of decompressive lumbar laminectomy Hx of tubal ligation History of carpal tunnel surgery of left wrist History of carpal tunnel surgery of right wrist History of Hx of colonoscopy History of esophagogastroduodenoscopy (EGD) History of hysteroscopy Social History Smoking Status: Never smoker
[2024-01-01] MEDS: Lactated Ringers 1,000 ML 15 ML IV (07:50)
[2024-01-01 07:52] LABS: Hematocrit 41.9 % (37-47); Hemoglobin 14.7 g/dL (12.0-15.0); Mean Corp Hgb Conc 35.1 g/dL (32-36); Mean Corpuscular Hgb 32.4 pg (27.0-32.0); Mean Corpuscular Volume 92.3 fL (81-99); Mean Platelet Vol. 9.1 fl (6.2-12.0); Platelet Count 250 K/mm3 (150-450); RBC Distribution Width SD 40.7 fl (35.1-43.9); Red Blood Count 4.54 M/mm3 (4.2-5.4); White Blood Count 4.5 K/mm3 (4.4-11.0)
[2024-01-01 08:06] LABS: Anion Gap 6 (5-15); BUN 22 mg/dL (7-18); BUN/Creat Ratio 31.7 RATIO (10-20); Calcium,Total 8.6 mg/dL (8.5-10.1); Chloride 112 mmol/L (98-107); Creatinine, Serum 0.69 mg/dL (0.55-1.02); EST Glomerular Filtration Rate 92 mL/min (>60); Est Glom Filt Rate - Afr Amer 111 mL/min (>60); Estimated Creatinine Clearance 76.44 ml/min; Glucose 97 mg/dL (74-106); Potassium 3.7 mmol/L (3.5-5.1); Sodium Level 141 mmol/L (136-145)
--- NOTE | 2024-01-01 08:40 | EMB_PTH ---
PATIENT: JOEY MUNOZ [place]: [facility] [place][id number] AGE/SX: 58/F ROOM: RE01/01/[address]: Dr. Gita Castro, MDDOB: 1965 BED: DIS: 01/01/2024 SPEC #: [id number] RECD: 01/01/24 10:06 STATUS: GREGORIO IQBALBrandy #: [id number] EFREN: 01/01/24 08:[address]: Gita Castro DEPT: SURGICAL PATHOLOGY RECD BY: Julia Loaiza ENTERED: 01/01/24 11:38 SP TYPE: ENDOM BX/C ADRIAN DR: Dr. Sulaiman Jensen MD Tissues: Endometrium, NOS Procedures: Surgery Specimen Level IV HEADER OPERATION: Hysteroscopy, D&C, Symphion PRE-OP DIAGNOSIS: Thickened endometrium, post menopausal bleeding TISSUE SUBMITTED: Endometrial curettings MICROSCOPIC DIAGNOSIS Endometrium, curettings: Weakly proliferative inactive endometrium. Fragments of benign myometrium with changes suggestive of adenomyosis. / 01/02/2024 MICROSCOPIC DESCRIPTION Slides are reviewed. GROSS DESCRIPTION Received in fixative is one container labeled with the patient's name and designated Endometrial curettings. The specimen consists of multiple irregular fragments of light deutsch soft tissue that in aggregate measure 3.0 x 1.0 x 0.2 cm. The specimen is totally submitted in one cassette. / 01/01/2024 TC:5 CPT:85694
--- NOTE | 2024-01-01 09:09 | PCM.OPRPT ---
Report of Operation Date of Procedure: 01/01/24 Pre-Operative Diagnosis: PMB, Thickened Endometrium Post-Operative Diagnosis: same Surgery/Procedure Performed:: Hysteroscopy, D&C with symphion Description of Surgical Findings:: lining appeared overall atrophic, possible small posterior fibroid, tiny stand of tissue noted. Surgeon: Gita Castro Type of Anesthesia: MAC Specimen's removed: endometrial curettings Estimated Blood Loss (mL): <5cc Fluids Replaced: 700 Description of Procedure: Informed consent was obtained the patient was taken the operating room she was placed in supine position. She was given anesthesia. She was then placed in the [facility] an acute care hospital where she was prepped and draped in the normal sterile fashion. At this time the weighted speculum was placed in the posterior fornix of vagina. Single-tooth tenaculum was used to gently grasp the anterior lip the cervix. At this time the uterine cavity was only sounded to approximately 4cm. Gentle dilatation was performed once adequate dilatation of the cervix was achieved the hysteroscope using normal saline as a distention medium was placed. on the posterior aspect - left there was a small opening that was likely the internal OS- at this time the sound was replaced and sounded to 8cm- next gentle dilatation was reattempted and successful. The hysteroscope was replaced and now the Tubal ostia were visualized. Small possible fibroid noted on posterior aspect and small stand of tissue otherwise the endometrium appeared atrophic. Symphion resecting device used to obtain endometrial curettings. Tissue will be sent to pathology for evaluation. Tenaculum removed. Good hemostasis. Instrument, lap count correct x 2. Vaginal Sweep was negative. fluid deficit 600cc Grafts/Implants Used: none Procedure Start Time: 08:51 Procedure Stop Time: 09:08 Complications none Admit VTE Documentation VTE Present on Admission: Yes VTE Mechan Device Prophylaxis: SCD's VTE Pharm Prophylaxis ordered?: Yes Reason prophylaxis not ordered:: Procedure Not Indicated
--- NOTE | 2024-01-01 09:17 | DCINST_ITS ---
Discharge Instructions Diet Discharge Diet: No restrictions Activity May resume sexual activity in: 1 week Dressing / Incision Call your doctor if you observe: Fever of 101 or Higher, Inability to urinate, Using more than 1 pad per hour and Uncontrolled pain Follow Up Care Please Follow Up With: Gita Castro MD When: 1-2 weeks post OP if you need an appointment please call [phone] Test Results: Test results from this visit will be discussed in further detail at your follow- up appointment, if applicable. Discharge Plan Admission Attending Provider: Gita Castro Primary Care Provider: Sulaiman Jensen Instructions Print Language: Vincentian Discharge Orders/Prescriptions Prescriptions: No Action cetirizine 5 mg Tablet 10 mg PO QHS famotidine 40 mg tablet 40 mg PO QHS dexlansoprazole 60 mg capsule,biphase delayed releas 60 mg PO DAILY topiramate 25 mg tablet 25 mg PO BID phentermine 15 mg capsule 15 mg PO DAILY Alive Premium Women's 50 Plus 80 mcg-166.7 mcg-66.7 mg tablet,chewable 1 tab PO DAILY cholecalciferol (vitamin D3) [Vitamin D3] 125 mcg (5,000 unit) tablet 125 mcg PO DAILY flaxseed oil 1,000 mg capsule 1,000 mg PO DAILY Referrals / Follow Up: Sulaiman Jensen MD [Primary Care Provider] - Disposition Disposition (needs filled in before D/C Order can be placed): Home, Self Care
--- NOTE | 2024-01-01 09:20 | PCM.POST.ANE ---
Anesthesia: Postop Eval I Current Vital Signs Temperature: 97.6 F Pulse Rate: 74 Blood Pressure: 100/63 Respiratory Rate: 16 Pulse Ox: 98 Oxygen Delivery Method: Room Air Assessment Airway patent: Yes Spontaneous unlabored respirations: Yes Mental status: Awake and Calm nausea: No Vomiting: No Anesthesia Complication: No Fluid Hydration Crystalloid volume administer (ml): 700 Total IV fluid infused: 700 Progress Note Anesthesia document: Postop Eval 1 completed: Yes
--- NOTE | 2024-01-01 13:14 | POSTOPAN2_ITS ---
Anesthesia Postop Eval I Sum Postop Eval Completion status Anesthesia document: Postop Eval 1 completed: Yes Anesthesia Postop Eval I Summary Anesthesia Postop Eval I Summary: Anesthesia Postop Eval I: Assessment Summary Airway patent Yes 01/01/24 09:21 TUBE [email or web address] Spontaneous unlabored Yes 01/01/24 09:21 TUBE BENDER.GDOTT respirations Mental status Awake,Calm 01/01/24 09:21 TUBE BENDER.GDOTT nausea No 01/01/24 09:21 TUBE BENDER.GDOTT Vomiting No 01/01/24 09:21 TUBE BENDER.GDOTT Anesthesia Postop Eval I: Fluid Summary Crystalloid volume administer 700 01/01/24 09:21 TUBE BENDER.GDOTT (ml) Colloids volume administered ( ml) Blood Product volume administered (ml) Total IV fluid infused 700 01/01/24 09:21 TUBE BENDER.GDOTT Anesthesia Postop Eval I: Summary Notes Anesthesia Complication No 01/01/24 09:21 TUBE BENDER.GDOTT Anesthesia Complication Comment: Post-operative progress note Anesthesia: Postop Eval II Evaluation Mental status: Awake Pain Level: 0 nausea: No Vomiting: No Complications Anesthesia Complication: No
--- NOTE | 2024-01-01 13:14 | PCM.POSTANE2 ---
Anesthesia Postop Eval I Sum Postop Eval Completion status Anesthesia document: Postop Eval 1 completed: Yes Anesthesia Postop Eval I Summary Anesthesia Postop Eval I Summary: Anesthesia Postop Eval I: Assessment Summary Airway patent Yes 01/01/24 09:21 NUCLEAR PROCESS ENGINEER.GDOTT Spontaneous unlabored Yes 01/01/24 09:21 NUCLEAR PROCESS ENGINEER.GDOTT respirations Mental status Awake,Calm 01/01/24 09:21 NUCLEAR PROCESS ENGINEER.GDOTT nausea No 01/01/24 09:21 NUCLEAR PROCESS ENGINEER.GDOTT Vomiting No 01/01/24 09:21 NUCLEAR PROCESS ENGINEER.GDOTT Anesthesia Postop Eval I: Fluid Summary Crystalloid volume administer 700 01/01/24 09:21 NUCLEAR PROCESS ENGINEER.GDOTT (ml) Colloids volume administered ( ml) Blood Product volume administered (ml) Total IV fluid infused 700 01/01/24 09:21 NUCLEAR PROCESS ENGINEER.GDOTT Anesthesia Postop Eval I: Summary Notes Anesthesia Complication No 01/01/24 09:21 NUCLEAR PROCESS ENGINEER.GDOTT Anesthesia Complication Comment: Post-operative progress note Anesthesia: Postop Eval II Evaluation Mental status: Awake Pain Level: 0 nausea: No Vomiting: No Complications Anesthesia Complication: No
== END 2024-01-01 10:39 | disposition home or self-care (01) ==
LOC: SDC 07:20 → AC 07:21
PROVIDERS: PCP Family Medicine; Referring Provider Obstetrics & Gynecology; Visit Provider Obstetrics & Gynecology
PROC: 0UDB8ZZ Extraction of Endometrium, Via Natural or Artificial Opening Endoscopic (ICD-10-PCS; CPT 58558; principal; 2024-01-01 08:30)
DX: D25.9 Leiomyoma of uterus, unspecified (principal); K21.9 Gastro-esophageal reflux disease without esophagitis; N95.0 Postmenopausal bleeding; Z79.899 Other long term (current) drug therapy
CPT/HCPCS: 58558; 00952; 80048; 85027; 88305; J2405